=== PATIENT | male | born 1995 | race African-American/Black ===

== ENCOUNTER 2024-06-11 18:39 | Emergency (ER) | payer OTHER ==
[2024-06-11 18:50] VITALS: BP 119/74; PULSE 97; RESP 19; TEMP 99.5; BMI 21.5
[2024-06-11] MEDS ORDERED: ACETAMINOPHEN 500 MG TABLET (FP) ONE (19:52)
[2024-06-11] MEDS ORDERED: ONDANSETRON *ODT* 4 MG TABLET ONE (19:52)
[2024-06-11] MEDS: ACETAMINOPHEN 500 MG TABLET (FP) PO ONE (20:01)
[2024-06-11] MEDS: ONDANSETRON 4 MG TABLET PO ONE (20:02)
== END 2024-06-11 20:28 | disposition home or self-care (01) ==
LOC: JERFT 18:39 → JER 18:39 → JERFT 20:28
DX: U07.1 COVID-19 (principal); R05.9 Cough, unspecified; R09.81 Nasal congestion; R19.7 Diarrhea, unspecified; R11.2 Nausea with vomiting, unspecified; R50.9 Fever, unspecified; R53.81 Other malaise; M54.6 Pain in thoracic spine; R06.6 Hiccough
CPT/HCPCS: 0241U-QW; 71046-TC-FY; 99284-25